=== PATIENT | male | born 1945 | race Caucasian/White ===

== ENCOUNTER → 2017-06-11 | Outpatient (REF) | payer MEDICARE, OTHER ==
[2017-06-12 14:10] LABS: ANTINUCLEAR ANTIBODIES DIRECT Negative (Negative)
== END ==
LOC: M LAB REF 13:14
DX: L23.9 Allergic contact dermatitis, unspecified cause (principal)
CPT/HCPCS: 86038

== ENCOUNTER 2017-09-20 06:42 | Day surgery (SDC) | payer MEDICARE, BC ==
[2017-09-20] MEDS ORDERED: PROPOFOL 200 MG/20 ML VIAL As Ordered ×2 (06:54→06:55)
[2017-09-20] MEDS: NS 1,000 ML IV (07:14)
== END 2017-09-20 09:10 | disposition home or self-care (01) ==
LOC: M OPP 06:42
DX: Z12.11 Encounter for screening for malignant neoplasm of colon (principal); Z86.010 Personal history of colon polyps; D12.7 Benign neoplasm of rectosigmoid junction; D12.2 Benign neoplasm of ascending colon; D12.3 Benign neoplasm of transverse colon; K57.30 Diverticulosis of large intestine without perforation or abscess without bleeding; K64.0 First degree hemorrhoids; E78.5 Hyperlipidemia, unspecified; M19.90 Unspecified osteoarthritis, unspecified site; M54.9 Dorsalgia, unspecified; Z88.8 Allergy status to other drugs, medicaments and biological substances; Z88.1 Allergy status to other antibiotic agents; Z79.82 Long term (current) use of aspirin; Z79.899 Other long term (current) drug therapy; Z80.52 Family history of malignant neoplasm of bladder
CPT/HCPCS: 45385

== ENCOUNTER → 2018-10-03 | Outpatient (REF) | payer MEDICARE, BC ==
[~2018-10-03] MED LIST: ASPI81TA26 PO; ATOR40TA75; BEPR1.5D2 OP; BIMA01SOL OU; ELID1CRE11 TOP; FLON1SPR; OSTETAB2 PO; SYSTOIN OU; TIMO0.5S29 OU; VITA100067 PO; XYZA5TAB4 PO; [UNRECOGNIZED DRUG - CODE] OU; [UNRECOGNIZED DRUG - OTHER]
[2018-10-06 00:09] LABS: Lyme Disease IgG/IgM Antibodie <0.91 ISR (0.00-0.90); Lyme Disease IgM Ab Quantitati <0.80 index (0.00-0.79)
== END ==
LOC: M LAB REF 17:24
PROVIDERS: ATTEND Nurse Practitioner Family
DX: Z11.59 Encounter for screening for other viral diseases (principal)

== ENCOUNTER → 2019-03-01 | Outpatient (REF) | payer MEDICARE, BC ==
[2019-03-01 13:00] LABS: RHEUMATOID FACTOR QUANT < 10.0 IU/ML (<15.0)
[2019-03-01 13:12] LABS: VITAMIN B12 LEVEL 443 PG/ML
[2019-03-03 00:08] LABS: ANTINUCLEAR ANTIBODIES DIRECT Negative (Negative); Lyme Disease IgG/IgM Antibodie <0.91 ISR (0.00-0.90); Lyme Disease IgM Ab Quantitati <0.80 index (0.00-0.79)
== END ==
LOC: M LAB REF 12:34
PROVIDERS: ATTEND Registered Nurse
DX: R53.1 Weakness (principal)

== ENCOUNTER → 2020-06-05 | Outpatient (REF) | payer MEDICARE, BC ==
[2020-06-07 13:42] LABS: TOTAL PROTEIN 8.3 GM/DL (6.4-8.2)
[2020-06-11 11:39] LABS: ALBUMIN % 61.4 % (55.8-66.1); ALPHA-1-GLOBULIN % 3.6 % (2.9-4.9); ALPHA-2-GLOBULINS 0.82 GM/DL (0.42-0.99); ALPHA-2-GLOBULINS % 9.9 % (7.1-11.8); BETA-1-GLOBULINS 0.55 GM/DL (0.28-0.60); BETA-1-GLOBULINS % 6.6 % (4.7-7.2); BETA-2-GLOBULINS 0.63 GM/DL (0.19-0.55); BETA-2-GLOBULINS % 7.6 % (3.2-6.5); GAMMA GLOBULIN % 10.9 % (11.1-18.8)
== END ==
LOC: M LAB REF 12:10
PROVIDERS: ATTEND Internal Medicine
DX: R77.9 Abnormality of plasma protein, unspecified (principal)

== ENCOUNTER → 2021-11-18 | Outpatient (CLI) | payer MEDICARE, BC | LOC: M WUC 14:36 | PROVIDERS: ATTEND Physician Assistant Medical | DX: M48.04 Spinal stenosis, thoracic region (principal); M47.896 Other spondylosis, lumbar region; M19.91 Primary osteoarthritis, unspecified site; R20.0 Anesthesia of skin; M25.78 Osteophyte, vertebrae; R52 Pain, unspecified ==

== ENCOUNTER → 2022-08-11 | Outpatient (CLI) | payer MEDICARE, BC ==
[~2022-08-11] MED LIST changes: +E-Z-GAS II EFFERVESCENT PACKET (SODIUM BICARB./CITRIC ACID/SIMETHICONE) As Ordered ONE; +E-Z-HD 98% w/w 340GM SUSP BTL As Ordered ONE; +E-Z-PAQUE 96% w/w SUSP 176GM BTL As Ordered ONE; +TIMO0.5S20 OU; -TIMO0.5S29 OU
== END ==
LOC: M RAD 07:25
PROVIDERS: ATTEND Internal Medicine
DX: R13.10 Dysphagia, unspecified (principal)

== ENCOUNTER 2022-09-14 16:22 | Inpatient (IN) | payer MEDICARE, BC ==
[~2022-09-14] VITALS: Ht 175.3 cm; Wt 77.0 kg
[~2022-09-14 16:22] MED LIST changes: -E-Z-GAS II EFFERVESCENT PACKET (SODIUM BICARB./CITRIC ACID/SIMETHICONE) As Ordered ONE; -E-Z-HD 98% w/w 340GM SUSP BTL As Ordered ONE; -E-Z-PAQUE 96% w/w SUSP 176GM BTL As Ordered ONE; -FLON1SPR; +FLON1SPR NARES
[2022-09-14] MEDS ORDERED: NS 2,390 ML in IV 1 EA IV ONE (16:50)
[2022-09-14] MEDS ORDERED: cefTRIAXone SOD 2 GM in D5W MINI-BAG PLUS 50 ML IV ONE (16:50)
[2022-09-14] MEDS ORDERED: VITA500C24 PO (17:05)
[2022-09-14 17:37] LABS: BASO % 0.4 % (0.0-1.0); HEMATOCRIT 48.9 % (42.0-52.0); HEMOGLOBIN 17.1 g/dl (13.5-17.5); LYMPH # 0.7 10^3/uL (1.5-5.0); LYMPH % 15.2 % (24.0-44.0); MEAN CORPUSCULAR HEMOGLOBIN 35.3 pg (27.0-33.0); MONO # 0.4 10^3/uL (0.0-0.8); MONO % 8.9 % (2.0-8.0); NEUTROPHILS # 3.4 10^3/uL (1.5-8.5); NEUTROPHILS % 75.1 % (36.0-66.0); PLATELET COUNT, AUTOMATED 147 10^3/uL (150-450); RED BLOOD COUNT 4.84 10^6/uL (4.30-6.10); WHITE BLOOD COUNT 4.5 10^3/uL (4.0-10.0)
[2022-09-14] MEDS ORDERED: ACETAMINOPHEN TAB 650MG DOSE (2X325MG) PO ONE (17:45)
[2022-09-14 17:47] LABS: ALBUMIN 4.4 G/DL (3.2-5.2); ALKALINE PHOSPHATASE 71 U/L (46-116); ALT/SGPT 28 U/L (7.0-40); AST/SGOT 36 U/L (<34); BILIRUBIN,DIRECT 0.3 MG/DL (<0.4); BLOOD UREA NITROGEN 10 MG/DL (9-23); CALCIUM LEVEL 8.9 MG/DL (8.3-10.6); CARBON DIOXIDE LEVEL 24 MMOL/L (20-31); CHLORIDE LEVEL 99 MMOL/L (98-107); CK-MB VALUE MASS < 1.0 NG/ML (<3.6); CREATININE FOR GFR 0.69 MG/DL (0.70-1.30); GLOMERULAR FILTRATION RATE > 60.0 (>42); GLUCOSE, FASTING 132 MG/DL (74-106); POTASSIUM SERUM 4.2 MMOL/L (3.5-5.1); SODIUM LEVEL 133 MMOL/L (136-145); TOTAL PROTEIN 7.5 G/DL (5.7-8.2)
[2022-09-14 17:52] LABS: CPK CREATINE PHOSPHOKINASE 282 U/L (46-171); MB/CK RELATIVE INDEX 0.35 (< OR =4)
[2022-09-14] MEDS ORDERED: OCUV1CAP4 PO (20:11)
[2022-09-14] MEDS ORDERED: TIMO0.5S3 OU (20:11)
[2022-09-14] MEDS ORDERED: VITA100093 PO (20:11)
[2022-09-14] MEDS ORDERED: LEVOTAB10 PO (20:11)
[2022-09-14] MEDS ORDERED: C-501TAB3 PO (20:11)
[2022-09-14] MEDS ORDERED: ATOR1TAB21 PO (20:11)
[2022-09-14] MEDS ORDERED: OLOP2.5D7 OU (20:11)
[2022-09-14] MEDS ORDERED: HOME MED LIST COMPLETE! XX SCH (20:15)
[2022-09-14] MEDS ORDERED: CHLORASEPTIC SPRAY MT PRN (20:55)
[2022-09-14] MEDS ORDERED: FLUTICASONE PROP 0.05% NASAL SPRAY 16 GM (FLONASE) NARES PRN (20:55)
[2022-09-14] MEDS ORDERED: ATORVASTATIN 20 MG TAB PO SCH (21:00)
[2022-09-14] MEDS ORDERED: ASPIRIN 81MG ENTERIC TABLET PO SCH (21:00)
[2022-09-14] MEDS ORDERED: LATANOPROST 0.005% OPHTH SOLN 2.5 ML OU SCH (21:00)
[2022-09-14] MEDS: LR 1,000 ML IV SCH (22:11)
[2022-09-14] MEDS: guaiFENesin ER 600 MG TAB PO SCH (22:11)
[2022-09-14 22:24] LABS: APPEARANCE, URINE CLEAR (CLEAR); BACTERIA, URINE AUTO NEGATIVE (NEGATIVE); BILIRUBIN, URINE AUTO NEGATIVE (NEGATIVE); BLOOD, URINE BLOOD NEGATIVE (NEGATIVE); COLOR, URINE STRAW (YELLOW); GLUCOSE, URINE (UA) AUTO NEGATIVE (NEGATIVE); KETONE, URINE AUTO NEGATIVE (NEGATIVE); LEUKOCYTE ESTERASE, URINE AUTO NEGATIVE (NEGATIVE); NITRITE, URINE AUTO NEGATIVE (NEGATIVE); PROTEIN, URINE AUTO NEGATIVE (NEGATIVE); RBC, URINE AUTO 0 /HPF (0-3); SPECIFIC GRAVITY URINE AUTO 1.006 (1.002-1.035); SQUAMOUS EPITHELIAL CELL UR AU 0 /HPF (0-6); UROBILINOGEN, URINE AUTO 0.2 mg/dL (0.0-2.0); WBC, URINE AUTO 0 /HPF (0-3)
[2022-09-14] MEDS: ACETAMINOPHEN TAB 650MG DOSE (2X325MG) PO PRN (22:27)
[2022-09-14] MEDS: KETOROLAC 30 MG/ML 1ML VIAL IV PRN (23:57)
[2022-09-15 01:41] VITALS: BP 115/87
[2022-09-15 05:30] LABS: HEMOGLOBIN 15.4 g/dl (13.5-17.5); MEAN CORPUSCULAR HEMOGLOBIN 34.7 pg (27.0-33.0); MEAN CORPUSCULAR HGB CONC 33.5 g/dl (32.0-36.5); MEAN CORPUSCULAR VOLUME 103.6 fl (80.0-96.0); PLATELET COUNT, AUTOMATED 140 10^3/uL (150-450); RED BLOOD COUNT 4.44 10^6/uL (4.30-6.10); WHITE BLOOD COUNT 5.7 10^3/uL (4.0-10.0)
[2022-09-15] MEDS: LR 1,000 ML IV SCH (05:34)
[2022-09-15] MEDS: KETOROLAC 30 MG/ML 1ML VIAL IV PRN (05:35)
[2022-09-15 05:54] LABS: BLOOD UREA NITROGEN 11 MG/DL (9-23); CALCIUM LEVEL 8.2 MG/DL (8.3-10.6); CARBON DIOXIDE LEVEL 28 MMOL/L (20-31); CHLORIDE LEVEL 104 MMOL/L (98-107); CREATININE FOR GFR 0.82 MG/DL (0.70-1.30); GLOMERULAR FILTRATION RATE > 60.0 (>42); GLUCOSE, FASTING 116 MG/DL (74-106); MAGNESIUM LEVEL 1.9 MG/DL (1.8-2.4); POTASSIUM SERUM 4.5 MMOL/L (3.5-5.1); SODIUM LEVEL 139 MMOL/L (136-145)
[2022-09-15 06:00] VITALS: BP 120/67
[2022-09-15] MEDS: ACETAMINOPHEN TAB 650MG DOSE (2X325MG) PO PRN (06:13)
[2022-09-15] MEDS: guaiFENesin ER 600 MG TAB PO SCH (08:35)
[2022-09-15] MEDS ORDERED: ENOXAPARIN 40MG/0.4ML SYRINGE (J1650 PER 10MG) SC SCH (09:00)
[2022-09-15] MEDS ORDERED: TIMOLOL XE GFS 0.5% OPHTH 5 ML OU SCH (09:00)
[2022-09-15] MEDS ORDERED: ACET1TAB55 PO (11:27)
[2022-09-15] MEDS ORDERED: SYMB16INH INH (11:27)
[2022-09-15 11:35] VITALS: BP 101/57
== END 2022-09-15 13:32 | disposition home or self-care (01) | DRG 152 ==
LOC: M ED 16:22 → EDBD 16:22 → M ED INP 20:51 → ENRESERV 23:24 → M MSPAV 09-15 01:22
PROVIDERS: ADMIT Internal Medicine; ATTEND Internal Medicine
DX: J06.9 Acute upper respiratory infection, unspecified (principal); G93.41 Metabolic encephalopathy; E87.1 Hypo-osmolality and hyponatremia; B34.8 Other viral infections of unspecified site; E78.5 Hyperlipidemia, unspecified; Z79.84 Long term (current) use of oral hypoglycemic drugs; Z79.899 Other long term (current) drug therapy; Z88.1 Allergy status to other antibiotic agents; Z88.8 Allergy status to other drugs, medicaments and biological substances; Z20.822 Contact with and (suspected) exposure to COVID-19

== ENCOUNTER → 2022-10-29 | Outpatient (CLI) | payer MEDICARE, BC ==
[~2022-10-29] MED LIST changes: +ACET1TAB55 PO; +ATOR1TAB21 PO; +BARIUM SULFATE 700 MG TABLET (E-Z-DISK) As Ordered ONE; +C-501TAB3 PO; +E-Z-PAQUE 96% w/w SUSP 176GM BTL As Ordered ONE; +LEVOTAB10 PO; +OCUV1CAP4 PO; +OLOP2.5D7 OU; +SYMB16INH INH; +TIMO0.5S3 OU; +VARIBAR NECTAR 40% w/v 240ML SUSP BTL As Ordered ONE; +VARIBAR PUDDING 40% w/v 230ML TUBE As Ordered ONE; +VITA100093 PO; +VITA500C24 PO
== END ==
LOC: M RAD 11:24
PROVIDERS: ATTEND Internal Medicine
DX: R13.10 Dysphagia, unspecified (principal)

== ENCOUNTER → 2022-12-24 | Outpatient (REF) | payer MEDICARE, BC ==
[~2022-12-24] MED LIST changes: -BARIUM SULFATE 700 MG TABLET (E-Z-DISK) As Ordered ONE; -E-Z-PAQUE 96% w/w SUSP 176GM BTL As Ordered ONE; -VARIBAR NECTAR 40% w/v 240ML SUSP BTL As Ordered ONE; -VARIBAR PUDDING 40% w/v 230ML TUBE As Ordered ONE
[2022-12-27 11:07] LABS: PSA TOTAL 3.2 ng/mL (0.0-4.0)
== END ==
LOC: M SFHCCAPE 13:39
PROVIDERS: ATTEND Physician Assistant
DX: R97.20 Elevated prostate specific antigen [PSA] (principal)

== ENCOUNTER 2022-12-30 09:59 | Outpatient (RCR) | payer MEDICARE, BC | END 2022-12-31 | LOC: M ST 09:59 | PROVIDERS: ATTEND Physician Assistant Medical | DX: R13.10 Dysphagia, unspecified (principal) ==

== ENCOUNTER → 2023-03-17 | Outpatient (CLI) | payer MEDICARE, BC ==
[~2023-03-17] MED LIST changes: +BARIUM SULFATE 700 MG TABLET (E-Z-DISK) As Ordered ONE; +E-Z-PAQUE 96% w/w SUSP 176GM BTL As Ordered ONE; +TAMS1CAP17 PO; +VARIBAR NECTAR 40% w/v 240ML SUSP BTL As Ordered ONE; +VARIBAR PUDDING 40% w/v 230ML TUBE As Ordered ONE
== END ==
LOC: M RAD 10:52
PROVIDERS: ATTEND Physician Assistant Medical
DX: R13.12 Dysphagia, oropharyngeal phase (principal)

== ENCOUNTER → 2023-06-15 | Outpatient (REF) | payer MEDICARE, BC ==
[~2023-06-15] MED LIST changes: -BARIUM SULFATE 700 MG TABLET (E-Z-DISK) As Ordered ONE; -E-Z-PAQUE 96% w/w SUSP 176GM BTL As Ordered ONE; -VARIBAR NECTAR 40% w/v 240ML SUSP BTL As Ordered ONE; -VARIBAR PUDDING 40% w/v 230ML TUBE As Ordered ONE
== END ==
LOC: M SFHCCAPE 08:44
PROVIDERS: ATTEND Urology
DX: R97.20 Elevated prostate specific antigen [PSA] (principal)

== ENCOUNTER → 2023-07-19 | Outpatient (CLI) | payer MEDICARE, BC | LOC: M RAD 08:13 | PROVIDERS: ATTEND Internal Medicine | DX: R74.01 Elevation of levels of liver transaminase levels (principal); N28.1 Cyst of kidney, acquired; K76.0 Fatty (change of) liver, not elsewhere classified ==

== ENCOUNTER → 2024-06-06 | Outpatient (REF) | payer MEDICARE, BC | LOC: M SFHCCAPE 08:08 | PROVIDERS: ATTEND Physician Assistant | DX: R97.20 Elevated prostate specific antigen [PSA] (principal) ==

== ENCOUNTER → 2024-08-17 | Outpatient (CLI) | payer MEDICARE, BC | LOC: M WUC 12:31 | PROVIDERS: ATTEND Physician Assistant Medical | DX: M54.50 Low back pain, unspecified (principal); M47.816 Spondylosis without myelopathy or radiculopathy, lumbar region; M47.817 Spondylosis without myelopathy or radiculopathy, lumbosacral region; M46.06 Spinal enthesopathy, lumbar region; M46.07 Spinal enthesopathy, lumbosacral region ==

== ENCOUNTER → 2024-12-06 | Outpatient (REF) | payer MEDICARE, BC | LOC: M SFHCCAPE 07:33 | PROVIDERS: ATTEND Physician Assistant | DX: R97.20 Elevated prostate specific antigen [PSA] (principal) ==

== ENCOUNTER → 2025-02-28 | Outpatient (REF) | payer MEDICARE, BC ==
[2025-02-28 18:27] LABS: VITAMIN B12 LEVEL 462.0 PG/ML (211-911)
== END ==
LOC: M LAB REF 17:37
PROVIDERS: ATTEND Internal Medicine
DX: R41.3 Other amnesia (principal)